=== PATIENT | female | born 1980 | race Caucasian/White ===

== ENCOUNTER 2022-05-02 07:23 | Outpatient (CLI) | payer OTHER, SELFPAY ==
--- NOTE | ~2022-05-02 | MM_ITS ---
EXAMINATION: MM screening sylvia BI w gale HISTORY: Screening mammogram TECHNIQUE: Craniocaudal and mediolateral oblique 3-D tomosynthesis images were obtained and synthetic 2-D images were generated. Rotated lateral CC views. CAD analysis was submitted and interpreted. COMPARISON: No prior mammogram is available for comparison at this institution. BREAST PARENCHYMAL COMPOSITION: The breasts are heterogeneously dense, which may obscure small masses . FINDINGS: Occasional punctate benign microcalcifications. Benign appearing posterior outer intramamma ry lymph nodes. There is no evidence of suspicious mass, calcification, or architectural distortion t o suggest malignancy in either breast. There has been no suspicious interval change. IMPRESSION: 1. No mammographic evidence of malignancy. 2. Recommend routine screening mammography in one year. BI-RADS Category 2: Benign finding(s). Reviewed, dictated and finalized at location A.
== END 2022-05-02 07:24 | disposition home or self-care (01) ==
LOC: ANHIMG 07:26
PROVIDERS: Visit Provider Nurse Practitioner
DX: Z12.31 Encounter for screening mammogram for malignant neoplasm of breast (principal)
CPT/HCPCS: 77063; 77067

== ENCOUNTER 2023-08-30 07:17 | Outpatient (CLI) | payer OTHER, SELFPAY ==
--- NOTE | ~2023-08-30 | MM_ITS ---
EXAMINATION: MM screening sylvia BI w gale HISTORY: Screening mammogram, family history of breast cancer in her mother. TECHNIQUE: Craniocaudal and mediolateral oblique 3-D tomosynthesis images were obtained and synthetic 2-D images were generated. CAD analysis was submitted and interpreted. COMPARISON: 05/02/2022 BREAST PARENCHYMAL COMPOSITION: The breasts are heterogeneously dense, which may obscure small masses . FINDINGS: No suspicious mass, calcification, or architectural distortion are identified in either jessy ast to suggest malignancy. There has been no suspicious interval change. IMPRESSION: 1. No mammographic evidence of malignancy. 2. Recommend routine screening mammography in one year. BI-RADS Category 1: Negative Reviewed, dictated and finalized at location A. L INSPECTOR
== END 2023-08-30 07:18 | disposition home or self-care (01) ==
PROVIDERS: Visit Provider Nurse Practitioner
DX: Z12.31 Encounter for screening mammogram for malignant neoplasm of breast (principal)
CPT/HCPCS: 77063; 77067

== ENCOUNTER 2024-10-07 16:06 | Outpatient (CLI) | payer OTHER, SELFPAY ==
--- NOTE | ~2024-10-07 | MM_ITS ---
EXAMINATION: MM screening sylvia BI w gale HISTORY: Screening TECHNIQUE: Craniocaudal and mediolateral oblique 3-D tomosynthesis images were obtained and synthetic 2-D images were generated. CAD analysis was submitted and interpreted. COMPARISON: Comparison to multiple prior studies sequentially, with oldest reviewed study dated 01/2022. BREAST PARENCHYMAL COMPOSITION: Dense: The breasts are heterogeneously dense, which may obscure small masses FINDINGS: There is no evidence of suspicious mass, calcification, or architectural distortion to sugg est malignancy in either breast. There has been no suspicious interval change. IMPRESSION: 1. No mammographic evidence of malignancy. 2. Recommend routine screening mammography in one year. BI-RADS Category 1: Negative Reviewed, dictated and finalized at location B. WAY INSPECTOR
--- OUTSIDE RECORDS SUMMARY | 2024-10-07 16:26 | XMS_ITS | Clinical Summary ---
Author Organization [facility] Main [place] Address [address] [place] [address] Care Team Providers Care Heat Treatment Technician Name Role Phone Taylor Bazzi MD Primary Care Provider [phone] Allergies No known active allergies Medications * This document contains information received from the source organization and may not represent a complete record from that organization. fluoride, sodium, 1.1 % paste as directed 04/07/20 21 Active levonorgestreL (MIRENA) IUD 1 each by intrauterine route once Active traZODone (DESYREL) 50 mg tablet TAKE 2 TABLETS NIGHTLY 180 tablet 3 12/18/19 24 Active rosuvastatin (CRESTOR) 10 mg tabletIndications: Hyperlipidemia, unspecified hyperlipidemia type Take 1 tablet (10 mg total) by mouth daily 90 tablet 3 01/24/20 24 Active ALPRAZolam (XANAX) 0.25 mg tablet Take 1 tablet (0.25 mg total) by mouth daily as needed for anxiety 30 tablet 04/16/20 24 Active FLUoxetine (PROzac) 20 mg capsule TAKE 3 CAPSULES DAILY 270 capsule 3 07/29/20 24 Active Active Problems Problem Noted Date Diagnosed Date Seasonal affective disorder (CMS/HCC) 11/22/2023 Hyperlipidemia 07/26/2021 Assessment & Plan (07/26/2021 10:08 AM FREIGHT ROUTER): Discussed HLD noted on recent labs. Given significant family history of CAD, will start low dose statin. Start rosuvastatin 10 mg daily. Discussed importance of healthy dietary choices. Information added for [facility] connection weight management program. Discussed importance of at least 150 min/week of mod intensity exercise. Pt verbalized understanding. Will f/u in 6 months. 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 WILLIAM (generalized anxiety disorder) 10/15/2019 Myopia of both eyes 07/23/2019 Routine eye exam 07/23/2019 Resolved Problems Problem Noted Date Diagnosed Date Resolved Date Grief reaction 04/19/2021 05/24/2021 Encounters Date Type Department Care Team Description 07/22/2024 1:00 PM FREIGHT ROUTER Office Visit [facility] Department of Psychiatry [address] [address] Patrica Reed NP WILLAIM (generalized anxiety disorder) (Primary Dx); Seasonal affective disorder (CMS/HCC) (HCC); Mixed obsessional thoughts and acts from Last 3 Months Immunizations Name Administration Dates Next Due COVID-19 mRNA ([employer]) 0.3 m L (30 mcg) vaccine (12 years and up) 06/03/2024 HPV9 06/14/2022,02/14/2022,07/26/2021 Influenza, Trivalent, Cell C ulture-based MDCK, Preservative Free, Antibiotic Free, Intramuscular 06/03/2024 Influenza, Unspecified 05/27/2022,05/27/2021 Pfizer SARS-CoV-2 Monovalent Vaccination (12+ Yrs) PURPLE 07/05/2021 Pfizer Sars-Cov-2 Bivalent V accination (12+ YRS) 05/25/2022 Tdap 07/26/2021 Surgical History Surgery Date Site/Laterality Comments WISDOM TOOTH EXTRACTION 08/27/2005 - 08/26/2006 CYSTECTOMY 08/27/2009 - 08/26/2010 Right cyst removed from right thigh- sent to pathology- benign Medical History Medical History Date Comments Headache sinus Anxiety and depression History of colonoscopy with polypectomy 2023 hyperplastic polyp Family History Medical History Relation Name Comments No Known Problems Brother 1 No Known Problems Brother 2 Coronary artery disease Father Surendra s/p CABG Heart attack Father Surendra Macular degeneration Father Surendra Vision loss Father Surendra Coronary artery disease Father's Brother 1 Bill & Omari s/p cabg Macular degeneration Father's Brother 1 Bill & Omari s /p cabg Prostate cancer Father's Brother 1 Bill & Omari Coronary artery disease Father's Brother 2 All 4 of th em s/p cabg Heart attack Father's Brother 2 All 4 of them Heart disease Father's Brother 2 All 4 of them Coronary artery disease Father's Brother 3 s/p cabg Coronary artery disease Father's Brother 4 Colon cancer Maternal Grandfather Yaron Cervical cancer Maternal Grandmother Terese Breast cancer Mother Laquita Cancer Mother Laquita colon polyps, p ossible colon cancer as recommended a colonoscopy Colon polyps Mother Laquita Leukemia Mother Laquita Uterine cancer Mother Lauqita Heart attack Paternal Grandfather Michael Macular degeneration Paternal Grandfather Michael Coronary artery disease Paternal Grandmother Adriana Diabetes Paternal Grandmother Adriana Stroke Paternal Grandmother Adriana Relation Name Status Comments Brother 1 Alive Brother 2 Alive Father Surendra Alive Father's Brother 1 Bill & Omari Father's Brother 2 All 4 of them Father's Brother 3 Father's Brother 4 Maternal Grandfather Yaron Maternal Grandmother Terese Mother Laquita Paternal Grandfather Michael Paternal Grandmother Adriana Social History Tobacco Use Types Packs/Day Years Used Date Smoking Tobacco: Former Cigarettes 0.3 15 0 01/25/1997 - 10/26/2011 Smokeless Tobacco: Never Tobacco Cessation:Counseling Given: Not Answered AUDIT-C Answer Date Recorded Q1: How often do you have a drink containing alc ohol? Monthly or less 10/05/2023 Average Number of Drinks Not on file 024 Frequency of Binge Drinking Not on file 04/2024 PHQ-2 Answer Date Recorded PHQ-2 Total Score (If total score is 3 or more points, staff should administer the PHQ-9) 0 01/24/2024 Personal Safety Answer Date Recorded Have you ever been in or are you currently in a harmful physical or emotional relationship or is someone making you feel afraid or unsafe? Denies 10/05/2023 Comments No Sex and Gender Information Value Date Recorded Sex Assigned at Not on file Legal Sex Female 11:15 AM FREIGHT ROUTER Gender Identity Female 03/08/2020 7:17 PM CDT Sexual Orientation Straight 03/08/2020 7: 17 PM CDT Occupation Industry Job Start Date Job End Date works as medical records specialist in [place] Not on file Not on file Not on file Obstetrics History Last Filed Vital Signs Vital Sign Reading Time Taken Comments Blood Pressure 93/65 01/24/2024 2:14 PM CDT Pulse 75 01/24/2024 2:14 PM CDT Temperature 37 C (98.6 F) 01/24/2024 2:14 PM CDT Respiratory Rate 19 10/05/2023 11:10 AM FREIGHT ROUTER Oxygen Saturation 97% 01/24/2024 2:14 PM CDT Inhaled Oxygen Concentration - - Weight 76.4 kg (168 lb 8 oz) 01/24/2024 2:14 PM CDT Height 170.2 cm (5' 7.01 ) 01/24/2024 2:14 PM CD T Body Mass Index 26.38 01/24/2024 2:14 PM CDT Plan of Treatment Health Maintenance Due Date Last Done Comments Hepatitis C Screening 1981 Hepatitis B Screening 12/22/1999 Cervical Cancer Screening 04/21/2022 04/21/2021 Breast Cancer Screening-Mammogram 05/02/2023 05/02/2022 Depression Screening 01/23/2025 01/24/2024, 08/01/2022, 07/26/2021 Regular Well Visit/Exam 18-64 01/23/2025 01/24/2024, 08/01/2022, 08/01/2022, Additional history exists DTaP/Tdap/Td Vaccine (2 - Td or Tdap) 07/26/2031 07/26/2021 HPV Vaccines Completed 06/14/2022, 01/26, 07/26/2021 Covid-19 Vaccine Completed 06/03/2024, , 07/05/2021, Additional history exists Influenza Vaccine Completed 06/03/2024, , 05/27/2022, Additional history exists Pneumococcal vaccine <65 Aged Out No longer eligible based on patient's age to complete this topic Varicella Vaccines Discontinued Procedures Procedure Name Priority Date/Time Associated Diagnosis Comments HM MAMMOGRAPHY Routine 05/02/2022 HM PAP SMEAR WITH HPV Routine 04/21/2021 from Last 3 Months or Most Recently Relevant to Health Maintenance Results * HM MAMMOGRAPHY (05/02/2022) Mammogram Normal us Historical Provider HEALTH MAINTENANCE Final Result * PAP SMEAR WITH HPV (04/21/2021) Pap smear Normal us Historical Provider HEALTH MAINTENANCE Final Result from Last 3 Months or Most Recently Relevant to Health Maintenance Insurance [employer] [facility] H[facility]/PPO Address: [place] [id number] [employer] H[employer]/PPO Address: [address] [phone] [employer] [facility] [facility] H[employer]/PPO Address: [address] [place] [id number] [employer] [facility] HMO/PPO Address: [address] [place] [id number] Advance Directives For more information, please contact: [phone] * Full Code (Latest Code Status on File) Date Activated Date Inactivated Comments 10/05/2023 9:30 AM 10/05/2023 3:23 PM Care Teams Heat Treatment Technician Relationship Specialty Start Date End Date Taylor Bazzi MD [id number] [address] PCP - General Internal Medicine 07/10/23
--- OUTSIDE RECORDS SUMMARY | 2024-10-07 16:26 | XMS_ITS | Referral Summary ---
Author Organization [facility] Main [place] Address [address] [place] [address] Care Team Providers Care Salesperson [employer] Name Role Phone Taylor Bazzi MD Primary Care Provider [phone] Encounters Date Type Department Care Team Description 07/22/2024 1:00 PM WINDOW INSTALLER Office Visit [facility] Department of Psychiatry [address] [address] Patrica Reed NP WILLIAM (generalized anxiety disorder) (Primary Dx); Seasonal affective disorder (CMS/HCC) (HCC); Mixed obsessional thoughts and acts from Last 3 Months Allergies No known active allergies Medications * [...] 07/26/2021 Assessment & Plan (07/26/2021 10:08 AM WINDOW INSTALLER): Discussed HLD noted on recent labs. Given significant family history of CAD, will start low dose statin. Start rosuvastatin 10 mg daily. Discussed importance of healthy dietary choices. Information added for [facility] weight management program. Discussed importance of at least 150 min/week of mod intensity exercise. Pt verbalized understanding. Will f/u in 6 months. 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 WILLIAM (generalized anxiety disorder) 10/15/2019 Myopia of both eyes 07/23/2019 Routine eye exam 07/23/2019 Resolved Problems Problem Noted Date Diagnosed Date Resolved Date Grief reaction 04/19/2021 05/24/2021 Immunizations Name Administration Dates Next Due COVID-19 mRNA ([employer]) 0.3 m L (30 mcg) vaccine (12 years and up) 06/03/2024 HPV9 06/14/2022,02/14/2022,07/26/2021 Influenza, Trivalent, Cell C ulture-based MDCK, Preservative Free, Antibiotic Free, Intramuscular 06/03/2024 Influenza, Unspecified 05/27/2022,05/27/2021 [employer] SARS-CoV-2 Monovalent Vaccination (12+ Yrs) PURPLE 07/05/2021 Pfizer Sars-Cov-2 Bivalent V accination (12+ YRS) 05/25/2022 Tdap 07/26/2021 Social History Tobacco Use Types Packs/Day Years [...] on file Legal Sex Female 11:15 AM WINDOW INSTALLER Gender Identity Female 03/08/2020 7:17 PM CDT Sexual Orientation Straight 03/08/2020 7: 17 PM CDT Occupation Industry Job Start Date Job End Date works as medical detailist in [place] Not on file Not on file Not on file Last Filed Vital Signs Vital Sign Reading Time Taken Comments Blood Pressure 93/65 01/24/2024 2:14 PM CDT Pulse 75 01/24/2024 2:14 PM CDT Temperature 37 C (98.6 F) 01/24/2024 2:14 PM CDT Respiratory Rate 19 10/05/2023 11:10 AM WINDOW INSTALLER Oxygen Saturation 97% 01/24/2024 2:14 PM CDT Inhaled Oxygen Concentration - - Weight 76.4 kg (168 lb 8 oz) 01/24/2024 2:14 PM CDT Height 170.2 cm (5' 7.01 ) 01/24/2024 2:14 PM CD T Body Mass Index 26.38 01/24/2024 2:14 PM CDT Plan of Treatment Not on file Procedures Procedure Name Priority Date/Time Associated Diagnosis Comments MAMMOGRAPHY Routine 05/02/2022 PAP SMEAR WITH HPV Routine 04/21/2021 from Last 3 Months or Most Recently Relevant to Health Maintenance Results * MAMMOGRAPHY (05/02/2022) Mammogram Normal Historical Provider HEALTH MAINTENANCE Final Result * PAP SMEAR WITH HPV (04/21/2021) Pap smear Normal Historical Provider HEALTH MAINTENANCE Final Result from Last 3 Months or Most Recently Relevant to Health Maintenance Insurance EMPLOYEES [facility] [employer] [employer] EMPLOYEES [employer] EMPLOYEES [employer] Advance Directives For more information, please contact: [phone] * Full Code (Latest Code Status on File) Date Activated Date Inactivated Comments 10/05/2023 9:30 AM 10/05/2023 3:23 PM Care Teams Salesperson [employer] Relationship Specialty Start Date End Date Taylor Bazzi MD [id number] [address] PCP - General Internal Medicine 07/10/23
== END 2024-10-07 16:07 | disposition home or self-care (01) ==
PROVIDERS: Visit Provider Nurse Practitioner
DX: Z12.31 Encounter for screening mammogram for malignant neoplasm of breast (principal)
CPT/HCPCS: 77063; 77067